=== PATIENT | female | born 1995 | race Caucasian/White ===

== ENCOUNTER 2022-02-22 09:45 | Outpatient (RCR) | payer MEDICARE, BC, SELFPAY ==
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
--- NOTE | 2022-02-21 15:54 | HO.PHPIOP ---
I met with the client who was sitting in an empty group room crying. She states that she feels overwhelmed being in groups because she can't remember what others say. We discussed how anxiety on ones first day is normal and not remembering, although difficult, is also often connected with anxiety and not knowing who others are yet. 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 She was reminded that she did not have to participate today and to take the day to acclimate . She agreed to stay for the day and is going to speak with her mother viet about how she feels.
[2022-02-22 11:13] VITALS: BP 120/70; PULSE 80; TEMP 37.1
--- NOTE | 2022-02-22 11:51 | HO.PHPIOP ---
02/22/2022- Group therapist requested individual counseling for Kalina since she was crying in the psychotherapy group this morning. In speaking with Kalina, she does not like group counseling and reported she does not understand what people are saying and cant remember the subject at hand. She prefers individual counseling and enjoys working on the [employer], the current program she is involved in. She is asking to be discharged from the program. Since Kalina's mother is her guardian, this therapist and Kalina called her mother, Sarah and discussed this difficulty with her on the telephone. Mother agrees this is not a good fit for her and knows and agrees to her discharge right now. Informed the PHP team during team meeting. -ARNOLD
[2022-02-22 13:08] VITALS: BP 110/68; PULSE 76
== END 2022-02-22 23:59 | disposition home or self-care (01) ==
LOC: HO.PHPA 09:45
PROVIDERS: Visit Provider Psychiatry & Neurology Psychiatry
DX: F33.1 Major depressive disorder, recurrent, moderate (principal); F42.9 Obsessive-compulsive disorder, unspecified
CPT/HCPCS: 90791; 90853